=== PATIENT | male | born 1945 | race Caucasian/White ===

== ENCOUNTER 2021-07-02 14:57 | Emergency (ER) | payer OTHER, BC ==
[2021-07-02] MEDS ORDERED: ALBUTEROL SO4 2.5/IPRATROPIUM 0.5 INH SOL 3 ML VIAL.NEB. NEB ONE ×2 (15:04→16:00)
[2021-07-02 15:20] VITALS: BP 156/89; PULSE 87; TEMP 98.1; BMI 28.8
[2021-07-03 17:07] LABS: SARS-CoV-2 NAA Not Detected (Not Detected)
== END 2021-07-02 16:27 | disposition home or self-care (01) ==
LOC: FER 14:57
PROC: 3E0F7GC Introduction of Other Therapeutic Substance into Respiratory Tract, Via Natural or Artificial Opening (ICD-10-PCS; principal; 2021-07-02)
DX: R05 Cough (principal); J44.9 Chronic obstructive pulmonary disease, unspecified
CPT/HCPCS: 71045-TC-FY; 99284-25; C9803; U0003; U0005

== ENCOUNTER 2021-07-14 11:35 | Emergency (ER) | payer OTHER, BC ==
[2021-07-14 11:39] VITALS: BP 158/85; PULSE 96; TEMP 98.3; BMI 28.8
[2021-07-14] MEDS ORDERED: IBUPROFEN 600 MG TABLET (FP) PO ONE ×2 (11:59→12:06)
[2021-07-14] MEDS ORDERED: LIDOCAINE 5% TOPICAL PATCH TP ONE (12:46)
[2021-07-14] MEDS ORDERED: LIDOCAINE 5% TOPICAL PATCH ONE (12:54)
[2021-07-14] MEDS ORDERED: LIDOCAINE PATCH REMOVAL MC SCH (22:00)
== END 2021-07-14 13:25 | disposition home or self-care (01) ==
LOC: FER 11:35
DX: R07.89 Other chest pain (principal)
CPT/HCPCS: 71046-TC-FY; 71101-TC-LT-FY; 93005; 99284-25

== ENCOUNTER 2022-02-25 04:35 | Day surgery (SDC) | payer OTHER, BC ==
[2022-02-23 12:21] VITALS: BMI 28.8
[~2022-02-25 04:35] MED LIST: ACETAMINOPHEN 325 MG TABLET (FP) PO PRN; CYCLOPENTOLATE HCL 1% OPHTH SOLN 2 ML BOTTLE OP SCH; KETOROLAC TROMETHAMINE 0.5% EYE DROP 1 DROP DROPS OP SCH; OFLOXACIN 0.3% OPHTHALMIC SOLUTION 5 ML BOTTLE OP SCH; PHENYLEPHRINE 2.5% OPHTH SOLN 15 ML BOTTLE OP SCH; TROPICAMIDE 1% OPHTH SOLN 15 ML BOTTLE OP SCH
[2022-02-25] MEDS ORDERED: KETOROLAC TROMETHAMINE 0.5% EYE DROP 1 DROP DROPS ONE (06:07)
[2022-02-25] MEDS ORDERED: PHENYLEPHRINE 2.5% OPTHALMIC DROP BOTTLE ONE (06:07)
[2022-02-25] MEDS ORDERED: TROPICAMIDE 1% OPHTH SOLN 15 ML BOTTLE ONE (06:07)
[2022-02-25] MEDS ORDERED: CYCLOPENTOLATE HCL 1% OPHTH SOLN 2 ML BOTTLE ONE (06:07)
[2022-02-25] MEDS ORDERED: OFLOXACIN 0.3% OPHTHALMIC SOLUTION 5 ML BOTTLE ONE (06:07)
[2022-02-25] MEDS ORDERED: TROPICAMIDE 1% OPHTH SOLN 15 ML BOTTLE OD ONE ×3 (06:15→06:40)
[2022-02-25] MEDS ORDERED: PHENYLEPHRINE 2.5% OPHTH SOLN 15 ML BOTTLE OD ONE ×3 (06:15→06:40)
[2022-02-25] MEDS ORDERED: OFLOXACIN 0.3% OPHTHALMIC SOLUTION 5 ML BOTTLE OD ONE ×3 (06:15→06:40)
[2022-02-25] MEDS ORDERED: KETOROLAC TROMETHAMINE 0.5% EYE DROP 1 DROP DROPS OD ONE ×3 (06:15→06:40)
[2022-02-25] MEDS ORDERED: CYCLOPENTOLATE HCL 1% OPHTH SOLN 2 ML BOTTLE OD ONE ×3 (06:15→06:40)
[2022-02-25] MEDS ORDERED: VANCOMYCIN 500 MG VIAL (RESTRICTED TO ID ONLY) ONE (07:16)
[2022-02-25] MEDS ORDERED: LIDOCAINE HCL/PF 1% SDV 5ML VIAL ONE (07:18)
[2022-02-25] MEDS ORDERED: TETRACAINE 0.5% OPHTH SOLN 2 ML BOTTLE ONE (07:18)
[2022-02-25] MEDS ORDERED: POVIDONE-IODINE 5% OPHTHALMIC PREP 30 ML SOLUTION ONE (07:19)
[2022-02-25] MEDS ORDERED: MIDAZOLAM HCL 2 MG/2 ML SINGLE DOSE VIAL ONE (07:48)
[2022-02-25] MEDS ORDERED: TETRAHYDROZOLINE HCL EYE DROPS OD ONE (08:00)
[2022-02-25] MEDS ORDERED: TETRACAINE 0.5% OPHTH SOLN 2 ML BOTTLE OD ONE (08:00)
[2022-02-25] MEDS ORDERED: POVIDONE-IODINE 5% OPHTHALMIC PREP 30 ML SOLUTION OD ONE (08:07)
[2022-02-25] MEDS ORDERED: BSS (NA/CA/MG/K) BALANCED SALT SOLUTION OPHTH SOLN 15 ML BOTTLE OD ONE (08:11)
[2022-02-25] MEDS ORDERED: LIDOCAINE HCL 1% PRESERVATIVE FREE - 30ML VIAL IO ONE (08:12)
[2022-02-25] MEDS ORDERED: CHONDROITIN SU A/HYALUR SOD 1 KIT IO ONE (08:13)
[2022-02-25] MEDS ORDERED: PHENYLEPHRINE/KETOROLAC 4 ML VIAL IO ONE (08:20)
[2022-02-25] MEDS ORDERED: LIDOCAINE HCL/PF 2% SDV 5ML VIAL ONE (08:23)
[2022-02-25] MEDS ORDERED: ONDANSETRON 4 MG/2 ML VIAL IVPUSH PRN (09:04)
[2022-02-25] MEDS ORDERED: LACTATED RINGERS SOLUTION 1,000 ML IV SCH (09:15)
[2022-02-25 10:56] VITALS: BP 149/82; PULSE 67; TEMP 98
== END 2022-02-25 09:15 | disposition home or self-care (01) ==
LOC: JASU-SURG 04:35
PROVIDERS: ATTEND Ophthalmology
PROC: 08RJ3JZ Replacement of Right Lens with Synthetic Substitute, Percutaneous Approach (ICD-10-PCS; principal; 2022-02-25 08:00)
DX: H26.9 Unspecified cataract (principal); E11.9 Type 2 diabetes mellitus without complications; I10 Essential (primary) hypertension; J44.9 Chronic obstructive pulmonary disease, unspecified; Z79.4 Long term (current) use of insulin; Z79.84 Long term (current) use of oral hypoglycemic drugs
CPT/HCPCS: 82962; J1097

== ENCOUNTER 2022-03-11 04:38 | Day surgery (SDC) | payer OTHER, BC ==
[2022-03-09 17:40] VITALS: BMI 28.8
[2022-03-11] MEDS ORDERED: PHENYLEPHRINE 2.5% OPHTH SOLN 15 ML BOTTLE ONE (06:56)
[2022-03-11] MEDS ORDERED: KETOROLAC TROMETHAMINE 0.5% EYE DROP 1 DROP DROPS ONE (06:56)
[2022-03-11] MEDS ORDERED: CYCLOPENTOLATE HCL 1% OPHTH SOLN 2 ML BOTTLE ONE (06:56)
[2022-03-11] MEDS ORDERED: OFLOXACIN 0.3% OPHTHALMIC SOLUTION 5 ML BOTTLE ONE (06:57)
[2022-03-11] MEDS ORDERED: TROPICAMIDE 1% OPHTH SOLN 15 ML BOTTLE ONE (06:57)
[2022-03-11] MEDS ORDERED: DEXTROSE 5%-0.45% SALINE 1,000 ML IV SCH (07:15)
[2022-03-11] MEDS ORDERED: LIDOCAINE HCL/PF 1% SDV 5ML VIAL ONE (07:15)
[2022-03-11] MEDS ORDERED: OFLOXACIN 0.3% OPHTHALMIC SOLUTION 5 ML BOTTLE OS ONE ×3 (07:15→07:25)
[2022-03-11] MEDS ORDERED: PHENYLEPHRINE 2.5% OPHTH SOLN 15 ML BOTTLE OS ONE ×3 (07:15→07:25)
[2022-03-11] MEDS ORDERED: CHONDROITIN SU A/HYALUR SOD 1 KIT ONE (07:15)
[2022-03-11] MEDS ORDERED: KETOROLAC TROMETHAMINE 0.5% EYE DROP 1 DROP DROPS OS ONE ×3 (07:15→07:25)
[2022-03-11] MEDS ORDERED: TROPICAMIDE 1% OPHTH SOLN 15 ML BOTTLE OS ONE ×3 (07:15→07:25)
[2022-03-11] MEDS ORDERED: CYCLOPENTOLATE HCL 1% OPHTH SOLN 2 ML BOTTLE OS ONE ×3 (07:15→07:25)
[2022-03-11] MEDS ORDERED: POVIDONE-IODINE 5% OPHTHALMIC PREP 30 ML SOLUTION ONE (07:33)
[2022-03-11] MEDS ORDERED: TETRACAINE 0.5% OPHTH SOLN 2 ML BOTTLE ONE (07:33)
[2022-03-11] MEDS ORDERED: ALBUTEROL SO4 HFA INHALER IH ONE (09:16)
[2022-03-11] MEDS ORDERED: MIDAZOLAM HCL 2 MG/2 ML SINGLE DOSE VIAL ONE (09:16)
[2022-03-11] MEDS ORDERED: GLYCOPYRROLATE 0.2 MG/1 ML VIAL ONE (09:32)
[2022-03-11] MEDS ORDERED: POVIDONE-IODINE 5% OPHTHALMIC PREP 30 ML SOLUTION OS ONE (09:39)
[2022-03-11] MEDS ORDERED: TETRACAINE 0.5% OPHTH SOLN 2 ML BOTTLE OS ONE (09:40)
[2022-03-11] MEDS ORDERED: BSS (NA/CA/MG/K) BALANCED SALT SOLUTION OPHTH SOLN 15 ML BOTTLE OS ONE (09:46)
[2022-03-11] MEDS ORDERED: CHONDROITIN SU A/HYALUR SOD 1 KIT IO ONE (09:48)
[2022-03-11] MEDS ORDERED: LIDOCAINE HCL 1% PRESERVATIVE FREE - 30ML VIAL IO ONE (09:48)
[2022-03-11] MEDS ORDERED: PHENYLEPHRINE/KETOROLAC 4 ML VIAL IO ONE (09:52)
[2022-03-11 16:57] VITALS: BP 147/82; PULSE 77; TEMP 98.7
== END 2022-03-11 10:45 | disposition home or self-care (01) ==
LOC: JASU-SURG 04:38
PROVIDERS: ATTEND Ophthalmology
PROC: 08RK3JZ Replacement of Left Lens with Synthetic Substitute, Percutaneous Approach (ICD-10-PCS; principal; 2022-03-11 09:00)
DX: H26.9 Unspecified cataract (principal); I10 Essential (primary) hypertension; J44.9 Chronic obstructive pulmonary disease, unspecified; E11.9 Type 2 diabetes mellitus without complications; Z79.84 Long term (current) use of oral hypoglycemic drugs
CPT/HCPCS: 82962; J1097

== ENCOUNTER 2022-09-14 11:00 | Emergency (ER) | payer OTHER, BC ==
[2022-09-14 11:41] VITALS: BP 122/75; PULSE 85; RESP 18; TEMP 99.2; BMI 28.8
[2022-09-14 13:03] LABS: HEMATOCRIT 49.7 % (35.4-49); HEMOGLOBIN 17.3 G/dL (11.7-16.9); MCH 34.2 pg (25.7-33.7); MCHC 34.7 g/dl (32.0-35.9); MEAN CELL VOLUME 98.7 fl (80-96); PLATELET COUNT 232.1 10^3/uL (134-434); RBC 5.04 10^6/uL (4.00-5.60); RDW 13.7 % (11.9-15.9); WHITE BLOOD COUNT 12.6 10^3/uL (4.0-10.8)
[2022-09-14 13:08] LABS: ALBUMIN 3.8 g/dl (3.4-5.0); BILIRUBIN,TOTAL 0.9 mg/dl (0.2-1); CALCIUM 9.3 mg/dl (8.5-10); CREATININE 0.9 mg/dl (0.55-1.3); TOT PROT 6.6 g/dl (6.4-8.2)
[2022-09-14 14:15] LABS: PLATELET ESTIMATE ADEQUATE
[2022-09-14 14:20] LABS: EPITHELIAL CELLS RARE /hpf
== END 2022-09-14 15:40 | disposition home or self-care (01) ==
LOC: FER 11:00
DX: S22.41XA Multiple fractures of ribs, right side, initial encounter for closed fracture (principal); E87.1 Hypo-osmolality and hyponatremia; W07.XXXA Fall from chair, initial encounter
CPT/HCPCS: 36415; 71101-TC-RT-FY; 80053; 81003; 81015; 84484; 85027; 93005; 99285-25

== ENCOUNTER 2024-01-26 10:58 | Inpatient (IN) | payer OTHER, BC ==
[2024-01-26 11:09] VITALS: BMI 27.3
[2024-01-26 13:14] LABS: BASO % 0.2 % (0-2.0); EOS % 0.5 % (0-4.5); HEMOGLOBIN 16.8 GM/dL (11.7-16.9); LYMPH % 14.5 % (8-40); MCH 31.1 pg (25.7-33.7); MCHC 32.3 g/dl (32.0-35.9); MEAN CELL VOLUME 96.3 fl (80-96); MEAN PLT VOLUME 8.4 fl (7.5-11.1); MONO % 6.7 % (3.8-10.2); NEUT % 78.1 % (42.8-82.8); PLATELET COUNT 246 10^3/uL (134-434); RDW 13.7 % (11.9-15.9); WHITE BLOOD COUNT 10.6 K/mm3 (4.0-10.0)
[2024-01-26] MEDS ORDERED: LIDOCAINE 4% PATCH TP ONE (13:20)
[2024-01-26] MEDS ORDERED: ACETAMINOPHEN INJECTION 100 ML IVPB ONE (13:20)
[2024-01-26] MEDS ORDERED: METHOCARBAMOL 500 MG TABLET ONE (13:20)
[2024-01-26 13:21] LABS: INR 0.97 (0.83-1.09); PROTHROMBIN TIME (PATIENT) 11.2 SEC (9.7-13.0)
[2024-01-26 13:24] LABS: ACTIVATED PTT 31.2 SECONDS (25.2-36.5)
[2024-01-26 13:45] LABS: POTASSIUM 4.1 mmol/L (3.5-5.1)
[2024-01-26 13:46] LABS: CALCIUM 9.2 mg/dL (8.5-10.1)
[2024-01-26] MEDS: ACETAMINOPHEN 1000 MG/100 ML BAG IVPB ONE (13:47)
[2024-01-26] MEDS: LIDOCAINE 5% TOPICAL PATCH TP ONE (13:47)
[2024-01-26 13:48] LABS: ALBUMIN 3.5 g/dl (3.4-5.0)
[2024-01-26] MEDS: METHOCARBAMOL 500 MG TABLET PO ONE (13:48)
[2024-01-26 13:50] LABS: CREATININE 0.8 mg/dL (0.55-1.3)
[2024-01-26 13:52] LABS: BILIRUBIN,TOTAL 0.6 mg/dL (0.2-1); TOT PROT 6.9 g/dl (6.4-8.2)
[2024-01-26] MEDS ORDERED: NICOTINE 21 MG/24 HOURS TOPICAL PATCH ONE (15:15)
[2024-01-26] MEDS: NICOTINE 21 MG/24 HOURS TOPICAL PATCH TD SCH (15:23)
[2024-01-26 18:43] LABS: EPI CELLS >36 /uL (0-25.1); HYALINE CASTS 4 /uL (0-3.1); URINE APPEARANCE CLOUDY; URINE BACTERIA 20 /uL (0-1359); URINE BILIRUBIN NEGATIVE (NEGATIVE); URINE COLOR YELLOW; URINE GLUCOSE (UA) 3+ (NEGATIVE); URINE KETONE NEGATIVE (NEGATIVE); URINE LEUK ESTERASE TRACE (NEGATIVE); URINE NITRITE NEGATIVE (NEGATIVE); URINE PROTEIN NEGATIVE (NEGATIVE); URINE UROBILINOGEN 0.2 mg/dL (0.2-1.0); URINE WBC 232 /uL (0-25.8)
[2024-01-26 21:02] LABS: URINE RBC 72.9 /uL (0-23.9); YEAST MANY (NEGATIVE)
[2024-01-26] MEDS ORDERED: HEPARIN NA (PORCINE) 5,000 UNITS/ML 1ML VIAL ONE (22:12)
[2024-01-26] MEDS: LIDOCAINE PATCH REMOVAL MC ONE (22:16)
[2024-01-26] MEDS: LIDOCAINE PATCH REMOVAL MC SCH (22:16)
[2024-01-26] MEDS: HEPARIN NA (PORCINE) 5,000 UNITS/ML 1ML VIAL SQ SCH (22:16)
[2024-01-27] MEDS: ACETAMINOPHEN 325 MG TABLET (FP) PO PRN (04:20)
[2024-01-27 07:20] LABS: BASO % 0.3 % (0-2.0); EOS % 1.5 % (0-4.5); HEMATOCRIT 48.8 % (35.4-49); HEMOGLOBIN 16.6 GM/dL (11.7-16.9); LYMPH % 21.7 % (8-40); MCH 32.6 pg (25.7-33.7); MEAN CELL VOLUME 95.8 fl (80-96); MEAN PLT VOLUME 8.4 fl (7.5-11.1); MONO % 9.5 % (3.8-10.2); PLATELET COUNT 224 10^3/uL (134-434); RDW 13.2 % (11.9-15.9); WHITE BLOOD COUNT 10.2 K/mm3 (4.0-10.0)
[2024-01-27 07:40] LABS: POTASSIUM 3.8 mmol/L (3.5-5.1)
[2024-01-27 07:42] LABS: CALCIUM 8.7 mg/dL (8.5-10.1)
[2024-01-27 07:43] LABS: BLOOD UREA NITROGEN 15.1 mg/dL (7-18); MAGNESIUM 1.9 mg/dL (1.8-2.4)
[2024-01-27 07:47] LABS: CREATININE 0.7 mg/dL (0.55-1.3)
[2024-01-27 07:48] LABS: CHOLESTEROL 126 mg/dL (50-200)
[2024-01-27 07:50] LABS: LDL CHOLESTEROL (ONLY SJRH) 64 mg/dL (5-100)
[2024-01-27 07:51] LABS: HDL CHOLESTEROL 49 mg/dL (40-60)
[2024-01-27] MEDS: amLODIPine BESYLATE 5 MG TABLET (FP) PO SCH (09:39)
[2024-01-27] MEDS: CLOPIDOGREL BISULFATE 75 MG TABLET (FP) PO SCH (09:39)
[2024-01-27] MEDS: LIDOCAINE 4% PATCH TP SCH (09:40)
[2024-01-27] MEDS: BUDESONIDE/FORMETEROL FUMARATE 160/4.5 mcg INHALER IH SCH (09:43)
[2024-01-27] MEDS: ATORVASTATIN CA 40 MG TABLET (FP) PO SCH (21:58)
[2024-01-27] MEDS: ASPIRIN COATED 81 MG TABLET.EC PO SCH (22:52)
[2024-01-28 18:38] VITALS: BP 150/88; PULSE 69; RESP 18; TEMP 98.1
== END 2024-01-28 22:23 | disposition home or self-care (01) | DRG 65 ==
LOC: JER 10:58 → JERBED 15:37 → J4W 01-27 04:13
PROVIDERS: ADMIT Internal Medicine; ATTEND Internal Medicine
DX: I63.81 Other cerebral infarction due to occlusion or stenosis of small artery (principal); G81.94 Hemiplegia, unspecified affecting left nondominant side; I10 Essential (primary) hypertension; J43.9 Emphysema, unspecified; E11.9 Type 2 diabetes mellitus without complications; E78.5 Hyperlipidemia, unspecified; R26.81 Unsteadiness on feet; F17.210 Nicotine dependence, cigarettes, uncomplicated
CPT/HCPCS: 0241U-QW; 36415; 70450-TC; 70551-TC; 71046-TC-FY; 71250-TC; 72100-TC-FY; 72170-TC-FY; 73502-TC-RT-FY; 80048; 80053; 80061; 81003; 82962; 83036; 83735; 84443; 84484; 85025; 85610; 85730; 87077; 87086; 93005; 93010; 93306-TC; 93880-TC; 97116-GP; 97162-GP; 99285-25; J0131; J1644

== ENCOUNTER 2024-07-26 11:05 | Emergency (ER) | payer OTHER, BC ==
[2024-07-26 11:15] VITALS: RESP 20; BMI 28.8
[2024-07-26 12:52] LABS: BASO % 0.2 % (0-2.0); EOS % 0.7 % (0-4.5); HEMATOCRIT 46.9 % (35.4-49); HEMOGLOBIN 15.4 GM/dL (11.7-16.9); LYMPH % 11.4 % (8-40); MCH 30.4 pg (25.7-33.7); MEAN CELL VOLUME 92.3 fl (80-96); MEAN PLT VOLUME 8.3 fl (7.5-11.1); MONO % 7.7 % (3.8-10.2); PLATELET COUNT 293 10^3/uL (134-434); RBC 5.07 M/mm3 (4.00-5.60); RDW 13.4 % (11.9-15.9); WHITE BLOOD COUNT 12.6 K/mm3 (4.0-10.0)
[2024-07-26] MEDS: OXYMETAZOLINE 0.05% NASAL SOLUTION 15 ML BOTTLE NS ONE (12:56)
[2024-07-26 12:59] LABS: INR 0.91 (0.83-1.09); PROTHROMBIN TIME (PATIENT) 10.3 SEC (9.7-13.0)
[2024-07-26 13:02] LABS: ACTIVATED PTT 33.4 SECONDS (25.2-36.5)
[2024-07-26 13:46] LABS: POTASSIUM 4.5 mmol/L (3.5-5.1)
[2024-07-26 13:50] LABS: ALBUMIN 3.8 g/dl (3.4-5.0); CALCIUM 9.3 mg/dL (8.5-10.1)
[2024-07-26 13:54] LABS: BILIRUBIN,TOTAL 0.8 mg/dL (0.2-1); TOT PROT 7.2 g/dl (6.4-8.2)
[2024-07-26 14:15] VITALS: BP 141/83; PULSE 83; TEMP 98.3
[2024-07-26 14:36] LABS: HIV INTERPRETATION NEGATIVE (NEGATIVE)
== END 2024-07-26 14:40 | disposition home or self-care (01) ==
LOC: JER 11:05
DX: R04.0 Epistaxis (principal)
CPT/HCPCS: 36415; 80053; 85025; 85610; 85730; 86803; 86850; 86900; 86901; 87389; 99283-25

== ENCOUNTER 2024-08-05 08:53 | Inpatient (IN) | payer OTHER, BC ==
[2024-08-05] MEDS ORDERED: ALBUTEROL SO4 2.5/IPRATROPIUM 0.5 INH SOL 3 ML VIAL.NEB. NEB ONE ×2 (09:56→16:02)
[2024-08-05] MEDS: ALBUTEROL SO4 2.5/IPRATROPIUM 0.5 INH SOL 3 ML VIAL.NEB. NEB SCH ×2 (09:57→12:04)
[2024-08-05 10:32] LABS: HEMATOCRIT 46.6 % (35.4-49); HEMOGLOBIN 15.3 GM/dL (11.7-16.9); MCHC 32.8 g/dl (32.0-35.9); MEAN CELL VOLUME 91.6 fl (80-96); MEAN PLT VOLUME 8.1 fl (7.5-11.1); PLATELET COUNT 263 10^3/uL (134-434); RBC 5.08 M/mm3 (4.00-5.60); RDW 13.3 % (11.9-15.9); WHITE BLOOD COUNT 25.5 K/mm3 (4.0-10.0)
[2024-08-05] MEDS ORDERED: methylPREDNISolone NA SUCC 125 MG/2 ML VIAL ONE (10:37)
[2024-08-05] MEDS: methylPREDNISolone NA SUCC 125 MG/2 ML VIAL IVPB ONE (10:37)
[2024-08-05 10:39] LABS: INR 0.96 (0.83-1.09); PROTHROMBIN TIME (PATIENT) 10.9 SEC (9.7-13.0)
[2024-08-05 10:42] LABS: ACTIVATED PTT 31.9 SECONDS (25.2-36.5)
[2024-08-05 10:46] LABS: VENOUS BASE EXCESS 1.5 mmol/L (-2-2); VENOUS O2 SATURATION 51.4 % (70-80); VENOUS PCO2 53.2 mmHg (38-52); VENOUS PH 7.346 (7.310-7.410)
[2024-08-05 10:48] LABS: POTASSIUM 4.7 mmol/L (3.5-5.1)
[2024-08-05 10:50] LABS: ALBUMIN 3.7 g/dl (3.4-5.0); BLOOD UREA NITROGEN 19.9 mg/dL (7-18)
[2024-08-05 10:54] LABS: CREATININE 1.1 mg/dL (0.55-1.3)
[2024-08-05 10:55] LABS: BILIRUBIN,TOTAL 0.9 mg/dL (0.2-1); TOT PROT 7.2 g/dl (6.4-8.2)
[2024-08-05 11:22] LABS: ANISOCYTOSIS 0; MACROCYTOSIS 0; ROULEAU 1+
[2024-08-05 11:25] LABS: PLATELET ESTIMATE ADEQUATE
[2024-08-05] MEDS ORDERED: PIPERACILLIN/TAZOB 3.375 GM 3.375 GM/50 ML BAG IVPB ONE (11:59)
[2024-08-05] MEDS: PIPERACILLIN/TAZOB 3.375 GM 3.375 GM in DEXTROSE 5%-WATER - 50 ML IVPB SCH ×2 (12:04→12:22)
[2024-08-05] MEDS: ASPIRIN COATED 81 MG TABLET.EC PO SCH (12:04)
[2024-08-05] MEDS: TAMSULOSIN HCL 0.4 MG CAP PO SCH (12:04)
[2024-08-05] MEDS ORDERED: ACETAMINOPHEN INJECTION 100 ML ONE (12:29)
[2024-08-05] MEDS: ACETAMINOPHEN 1000 MG/100 ML BAG IVPB ONE (12:30)
[2024-08-05] MEDS: methylPREDNISolone NA SUCC 40 MG/1 ML VIAL IVPUSH SCH (15:15)
[2024-08-05] MEDS ORDERED: methylPREDNISolone NA SUCC 40 MG/1 ML VIAL ONE (15:15)
[2024-08-05] MEDS ORDERED: INSULIN ASPART SLIDING SCALE (NOVOLOG) 1 VIAL SQ ONE (17:06)
[2024-08-05] MEDS: INSULIN (NOVOLOG) ASPART 100 UNITS/ML 10ML VIAL SQ SCH (17:07)
[2024-08-05 18:30] VITALS: BMI 29.7
[2024-08-05] MEDS: HEPARIN NA (PORCINE) 5,000 UNITS/ML 1ML VIAL SQ SCH (21:44)
[2024-08-06] MEDS: EMPAGLIFLOZIN (JARDIANCE) 10 MG TABLET PO SCH (07:12)
[2024-08-06] MEDS: FUROSEMIDE 20 MG TABLET (FP) PO SCH (09:53)
[2024-08-06] MEDS: NICOTINE 21 MG/24 HOURS TOPICAL PATCH TD SCH (09:53)
[2024-08-06] MEDS: amLODIPine BESYLATE 5 MG TABLET (FP) PO SCH (09:53)
[2024-08-06] MEDS: FAMOTIDINE 20 MG TABLET PO SCH (09:53)
[2024-08-06] MEDS: CLOPIDOGREL BISULFATE 75 MG TABLET (FP) PO SCH (09:53)
[2024-08-06] MEDS ORDERED: PATIENT'S OWN MEDICATION (NON-FORMULARY) (Mirabegron [Myrbetriq] 25 MG Tab.Er.24h) PO SCH (10:00)
[2024-08-06] MEDS ORDERED: INSULIN (LEVEMIR) 100 UNITS/ML UNITS SQ SCH (10:10)
[2024-08-06 10:29] LABS: HEMATOCRIT 45.6 % (35.4-49); HEMOGLOBIN 14.6 GM/dL (11.7-16.9); MCH 29.7 pg (25.7-33.7); MEAN CELL VOLUME 92.9 fl (80-96); MEAN PLT VOLUME 8.6 fl (7.5-11.1); PLATELET COUNT 275 10^3/uL (134-434); RBC 4.91 M/mm3 (4.00-5.60); RDW 13.3 % (11.9-15.9); WHITE BLOOD COUNT 20.1 K/mm3 (4.0-10.0)
[2024-08-06 10:42] LABS: POTASSIUM 4.4 mmol/L (3.5-5.1)
[2024-08-06 10:47] LABS: CALCIUM 8.7 mg/dL (8.5-10.1)
[2024-08-06 10:48] LABS: ALBUMIN 3.3 g/dl (3.4-5.0); BLOOD UREA NITROGEN 28.2 mg/dL (7-18)
[2024-08-06 10:50] LABS: BILIRUBIN,TOTAL 0.7 mg/dL (0.2-1); CREATININE 1.2 mg/dL (0.55-1.3); TOT PROT 6.6 g/dl (6.4-8.2)
[2024-08-06 10:58] LABS: ANISOCYTOSIS 0; MACROCYTOSIS 0
[2024-08-06] MEDS ORDERED: INSULIN (LEVEMIR) 100 UNITS/ML UNITS SQ ONE (12:16)
[2024-08-06] MEDS ORDERED: INSULIN ASPART SLIDING SCALE (NOVOLOG) 1 VIAL SQ ONE ×3 (12:16→20:52)
[2024-08-06] MEDS: INSULIN (LEVEMIR) 100 UNITS/ML UNITS SQ SCH ×2 (12:19→22:30)
[2024-08-06] MEDS: AZITHROMYCIN IVPB 500 MG/250 ML BAG IVPB SCH (12:20)
[2024-08-06] MEDS: BUDESONIDE/FORMETEROL FUMARATE 160/4.5 mcg INHALER IH SCH (13:34)
[2024-08-06] MEDS: CEFTRIAXONE 1 GM in DEXTROSE 5%-WATER - 50 ML IVPB SCH (14:59)
[2024-08-06] MEDS: ATORVASTATIN CA 40 MG TABLET (FP) PO SCH (17:14)
[2024-08-07 09:41] LABS: HEMATOCRIT 44.4 % (35.4-49); HEMOGLOBIN 14.5 GM/dL (11.7-16.9); MCH 29.7 pg (25.7-33.7); MCHC 32.6 g/dl (32.0-35.9); MEAN CELL VOLUME 91.1 fl (80-96); MEAN PLT VOLUME 8.4 fl (7.5-11.1); PLATELET COUNT 300 10^3/uL (134-434); RBC 4.88 M/mm3 (4.00-5.60); RDW 13.5 % (11.9-15.9); WHITE BLOOD COUNT 22.4 K/mm3 (4.0-10.0)
[2024-08-07 09:58] LABS: POTASSIUM 4.2 mmol/L (3.5-5.1)
[2024-08-07 10:00] LABS: ALBUMIN 3.3 g/dl (3.4-5.0); CALCIUM 8.8 mg/dL (8.5-10.1)
[2024-08-07 10:02] LABS: BLOOD UREA NITROGEN 32.7 mg/dL (7-18)
[2024-08-07 10:04] LABS: CREATININE 1.1 mg/dL (0.55-1.3)
[2024-08-07 10:06] LABS: BILIRUBIN,TOTAL 0.5 mg/dL (0.2-1); TOT PROT 6.8 g/dl (6.4-8.2)
[2024-08-07 10:34] LABS: ANISOCYTOSIS 0; MACROCYTOSIS 0
[2024-08-07] MEDS ORDERED: INSULIN ASPART SLIDING SCALE (NOVOLOG) 1 VIAL SQ ONE ×3 (11:45→22:29)
[2024-08-07] MEDS: FLUTICASONE PROP 0.05% 16 GM NASAL SPRAY NS SCH (13:31)
[2024-08-07] MEDS: ALBUTEROL SO4 0.083% IH SOL 2.5 MG/3 ML VIAL.NEB. NEB SCH (16:27)
[2024-08-07] MEDS ORDERED: INSULIN (LEVEMIR) 100 UNITS/ML UNITS SQ ONE (22:29)
[2024-08-08] MEDS: EMPAGLIFLOZIN (JARDIANCE) 25 MG TABLET PO SCH (06:35)
[2024-08-08] MEDS ORDERED: ZOLPIDEM TARTRATE 5 MG TABLET PO PRN (10:40)
[2024-08-08] MEDS: FLUTICASONE/UMECLIDIN/VILANTER(200-62.5-25 TRELEGY ELLIPTA) INAHLER IH SCH (11:45)
[2024-08-08 15:36] VITALS: RESP 18
[2024-08-08] MEDS ORDERED: INSULIN ASPART SLIDING SCALE (NOVOLOG) 1 VIAL SQ ONE (21:03)
[2024-08-08] MEDS: methylPREDNISolone NA SUCC 40 MG/1 ML VIAL IVPUSH SCH (21:08)
[2024-08-09 10:17] VITALS: TEMP 97.9
[2024-08-09 15:22] VITALS: BP 116/61; PULSE 67
== END 2024-08-09 16:43 | disposition home health service (06) | DRG 192 ==
LOC: JER 08:53 → JERBED 10:18 → OBSVTOIN 11:29 → J8W 17:25 → JERBED 17:56 → J8W 17:58 → JERBED 18:51 → J8W 19:18
PROVIDERS: ADMIT Family Medicine; ATTEND Family Medicine
DX: J43.9 Emphysema, unspecified (principal); J20.9 Acute bronchitis, unspecified; R59.0 Localized enlarged lymph nodes; E11.9 Type 2 diabetes mellitus without complications
CPT/HCPCS: 0241U-QW; 36415; 71045-TC-FY; 71275-TC; 80053; 80061; 82803; 82962; 83036; 83880; 84443; 84484; 85025; 85610; 85730; 87040; 87070; 87205; 93005; 93010; 93306-TC; 94640; 94761; 99285-25; G0378; J0131; J1644; Q9967

== ENCOUNTER 2024-10-10 16:09 | Emergency (ER) | payer OTHER, BC ==
[2024-10-10 16:20] VITALS: BMI 27.6
[2024-10-10] MEDS ORDERED: TRANEXAMIC ACID 1000 MG/10 ML VIAL ONE (17:07)
[2024-10-10] MEDS: TRANEXAMIC ACID 1000 MG/10 ML VIAL IVPB ONE (18:22)
[2024-10-10] MEDS: TRANEXAMIC ACID 1000 MG/10 ML VIAL IVPUSH ONE (18:23)
[2024-10-10] MEDS: OXYMETAZOLINE 0.05% NASAL SOLUTION 15 ML BOTTLE NS ONE (18:23)
[2024-10-10 18:40] LABS: BASO % 0.5 % (0-2.0); EOS % 3.3 % (0-4.5); HEMATOCRIT 45.4 % (35.4-49); HEMOGLOBIN 14.6 GM/dL (11.7-16.9); LYMPH % 18.2 % (8-40); MCH 28.7 pg (25.7-33.7); MCHC 32.1 g/dl (32.0-35.9); MEAN CELL VOLUME 89.5 fl (80-96); MEAN PLT VOLUME 8.4 fl (7.5-11.1); MONO % 6.5 % (3.8-10.2); NEUT % 71.5 % (42.8-82.8); PLATELET COUNT 342 10^3/uL (134-434); RBC 5.08 M/mm3 (4.00-5.60); RDW 15.8 % (11.9-15.9); WHITE BLOOD COUNT 15.5 K/mm3 (4.0-10.0)
[2024-10-10 20:40] VITALS: BP 122/72; PULSE 76; RESP 19; TEMP 97.9
== END 2024-10-10 20:40 | disposition home or self-care (01) ==
LOC: JER 16:09
PROC: 093K7ZZ Control Bleeding in Nasal Mucosa and Soft Tissue, Via Natural or Artificial Opening (ICD-10-PCS; principal; 2024-10-10)
PROC: 3E033GC Introduction of Other Therapeutic Substance into Peripheral Vein, Percutaneous Approach (ICD-10-PCS; 2024-10-10)
DX: R04.0 Epistaxis (principal)
CPT/HCPCS: 30905; 36415; 85025; 96374; 99284-25

== ENCOUNTER 2024-11-10 11:29 | Day surgery (SDC) | payer OTHER, BC ==
[2024-11-10] MEDS: FERRIC CARBOXYMALTOSE 750 MG in SODIUM CHLORIDE 250 ML IVPB ONE (12:06)
[2024-11-10 12:49] VITALS: BP 105/78; PULSE 73; RESP 18; TEMP 98.1
== END 2024-11-10 12:45 | disposition home or self-care (01) ==
LOC: FINFUSION 11:29 → FM/S 11:31 → FINFUSION 12:45
PROVIDERS: ATTEND Family Medicine
PROC: 3E033GC Introduction of Other Therapeutic Substance into Peripheral Vein, Percutaneous Approach (ICD-10-PCS; principal; 2024-11-10)
DX: D50.9 Iron deficiency anemia, unspecified (principal)
CPT/HCPCS: 96365; J1439

== ENCOUNTER 2024-11-17 11:44 | Day surgery (SDC) | payer OTHER, BC ==
[2024-11-17] MEDS: FERRIC CARBOXYMALTOSE 750 MG in SODIUM CHLORIDE 250 ML IVPB ONE (12:15)
[2024-11-17 13:17] VITALS: BP 110/55; PULSE 69; RESP 16; TEMP 97.7
== END 2024-11-17 13:10 | disposition home or self-care (01) ==
LOC: FINFUSION 11:44 → FM/S 11:46 → FINFUSION 13:10
PROVIDERS: ATTEND Family Medicine
PROC: 3E033GC Introduction of Other Therapeutic Substance into Peripheral Vein, Percutaneous Approach (ICD-10-PCS; principal; 2024-11-17)
DX: D50.9 Iron deficiency anemia, unspecified (principal)
CPT/HCPCS: 96365; J1439

== ENCOUNTER 2025-02-15 06:29 | Day surgery (SDC) | payer OTHER, BC ==
[2025-02-13 14:28] VITALS: BMI 26.4
[2025-02-15 07:24] VITALS: TEMP 97.3
[2025-02-15] MEDS ORDERED: LIDOCAINE HCL/PF 1% SDV 5ML VIAL ONE (07:29)
[2025-02-15] MEDS ORDERED: BUPIVACAINE HCL/PF 0.75% 10 ML VIAL ONE (07:29)
[2025-02-15] MEDS ORDERED: ACETAMINOPHEN 500 MG TABLET (FP) PO PRN (08:43)
[2025-02-15] MEDS: LIDOCAINE HCL 1% PRESERVATIVE FREE - 30ML VIAL IJ ONE (09:16)
[2025-02-15] MEDS: BUPIVACAINE HCL/PF 0.75% 10 ML VIAL NR ONE (09:18)
[2025-02-15 09:38] VITALS: BP 158/51; PULSE 74; RESP 18
== END 2025-02-15 09:45 | disposition home or self-care (01) ==
LOC: JASU-SURG 06:29
PROVIDERS: ATTEND Pain Medicine Pain Medicine
PROC: 3E0T33Z Introduction of Anti-inflammatory into Peripheral Nerves and Plexi, Percutaneous Approach (ICD-10-PCS; 2025-02-15)
PROC: 3E0T3BZ Introduction of Anesthetic Agent into Peripheral Nerves and Plexi, Percutaneous Approach (ICD-10-PCS; principal; 2025-02-15 08:30)
DX: M47.816 Spondylosis without myelopathy or radiculopathy, lumbar region (principal)
CPT/HCPCS: 76000-TC-FY